=== PATIENT | female | born 1985 | race Caucasian/White ===

== ENCOUNTER 2017-11-21 03:21 | Emergency (ER) | payer OTHER ==
[~2017-11-21] VITALS: Ht 172.7 cm; Wt 83.9 kg
[~2017-11-21 03:21] MED LIST: DARVOCET-N 1001 EACH PO; KEFLEX500 MG PO; NOHOMEMEDICATIONS; NORCO 5-325 TA1 EACH PO
[2017-11-21] MEDS ORDERED: NAPROSYN500 MG PO (04:48)
[2017-11-21 05:20] VITALS: BP 120/76
== END 2017-11-21 05:40 | disposition home or self-care (01) ==
LOC: ER 03:21
DX: N94.6 Dysmenorrhea, unspecified (principal)